=== PATIENT | female | born 1980 | race Two or more races ===

== ENCOUNTER 2018-09-18 16:05 | Emergency (ER) | payer OTHER ==
[~2018-09-18] VITALS: Ht 157.5 cm; Wt 84.4 kg
[2018-09-18] MEDS ORDERED: ETOMIDATE (2MG/ML) 20ML VIAL IV ONE (16:30)
[2018-09-18] MEDS ORDERED: ONDANSETRON HCL 4 MG/2 ML VIAL IV ONE (16:45)
[2018-09-18] MEDS ORDERED: MORPHINE SULFATE 10 MG/ML INJ 1ML SDV IV ONE (16:45)
[2018-09-18 17:17] VITALS: BP 146/94
== END 2018-09-18 18:08 | disposition home or self-care (01) ==
LOC: ER 16:05
DX: S53.125A Posterior dislocation of left ulnohumeral joint, initial encounter (principal); E11.9 Type 2 diabetes mellitus without complications; Z98.51 Tubal ligation status; W18.39XA Other fall on same level, initial encounter; Y93.01 Activity, walking, marching and hiking; Y99.8 Other external cause status; Y92.89 Other specified places as the place of occurrence of the external cause
CPT/HCPCS: 24600; 73070; 94761; 96374; 96375; 99285; J2270; J2405